=== PATIENT | male | born 1950 | race Two or more races ===

== ENCOUNTER 2018-10-12 09:08 | Day surgery (SDC) | payer MEDICARE, OTHER ==
[2018-10-12] MEDS ORDERED: IV LACTATED RINGERS SOLUTION 1,000 ML BAG IV ONE (09:09)
[2018-10-12] MEDS ORDERED: GLYCOPYRROLATE 0.2 MG/ML VIAL MC ONE (09:09)
[2018-10-12] MEDS ORDERED: NEOSTIGMINE METHYLSULFATE 10 MG/10 ML VIAL IV ONE (09:09)
[2018-10-12] MEDS ORDERED: EPHEDRINE SULFATE 50 MG/ML AMPUL MC ONE (09:09)
[2018-10-12] MEDS ORDERED: PROPOFOL 200 MG/20 ML BOTTLE IV ONE (09:09)
[2018-10-12] MEDS ORDERED: ONDANSETRON 4 MG/2 ML VIAL IV ONE (09:09)
[2018-10-12] MEDS ORDERED: CEFAZOLIN 50 ML IV ONE (09:26)
[2018-10-12] MEDS ORDERED: IV LACTATED RINGERS SOLUTION 1,000 ML IV PRN (10:30)
[2018-10-12] MEDS ORDERED: MIDAZOLAM HCL 2 MG/2 ML VIAL ONE (11:09)
[2018-10-12] MEDS ORDERED: FENTANYL CITRATE 250 MCG/5 ML AMPUL ONE (11:10)
[2018-10-12] MEDS ORDERED: METOCLOPRAMIDE HCL 10 MG/2 ML VIAL ONE (11:11)
[2018-10-12] MEDS ORDERED: ROCURONIUM BROMIDE 50 MG/5 ML VIAL ONE (11:12)
[2018-10-12] MEDS ORDERED: SEVOFLURANE 250 ML BOTTLE ONE (11:18)
[2018-10-12] MEDS ORDERED: BACITRACIN ZINC OINT 15 GM TUBE ONE (11:19)
[2018-10-12] MEDS ORDERED: LIDOCAINE 1%-EPI 1:100,000 20 ML VIAL ONE (12:16)
[2018-10-12] MEDS ORDERED: BUPIVACAINE PF 0.5% 30 ML VIAL ONE (12:16)
[2018-10-12] MEDS ORDERED: ACETAMINOPHEN 325 MG TABLET ONE (13:25)
[2018-10-12] MEDS ORDERED: GABAPENTIN 300 MG CAPSULE PO ONE (14:00)
[2018-10-12] MEDS ORDERED: ACETAMINOPHEN 325 MG TABLET PO ONE (14:00)
[2018-10-12] MEDS ORDERED: IBUPROFEN 800 MG TABLET PO ONE (14:00)
== END 2018-10-12 14:43 | disposition home or self-care (01) ==
LOC: DS 09:08
PROVIDERS: ATTEND Surgery
DX: K42.0 Umbilical hernia with obstruction, without gangrene (principal); F15.90 Other stimulant use, unspecified, uncomplicated; I10 Essential (primary) hypertension; E78.5 Hyperlipidemia, unspecified; I25.10 Atherosclerotic heart disease of native coronary artery without angina pectoris; E66.9 Obesity, unspecified; Z87.891 Personal history of nicotine dependence; Z72.89 Other problems related to lifestyle; Z87.442 Personal history of urinary calculi; Z98.890 Other specified postprocedural states; Z79.899 Other long term (current) drug therapy
CPT/HCPCS: 49587; 71045; 82962; J0690; J2250; J2405; J2710; J2765; J3010; J3490 ×5; J7120 ×2; A4649; A4663

== ENCOUNTER 2019-01-23 08:03 | Day surgery (SDC) | payer MEDICARE, OTHER ==
[2019-01-23] MEDS ORDERED: IRR STERIL WATER FOR IRR 1000 ML BOTTLE IR ONE (08:04)
[2019-01-23] MEDS ORDERED: IV NORMAL SALINE 1000 ML BAG IV ONE (08:04)
[2019-01-23] MEDS ORDERED: LIDOCAINE HCL 2% 20 ML VIAL MC ONE (08:04)
[2019-01-23] MEDS ORDERED: PROPOFOL 200 MG/20 ML BOTTLE IV ONE (08:04)
[2019-01-23 08:43] LABS: *BILIRUBIN,URIN NEGATIVE (NEGATIVE); *BLOOD, URINE NEGATIVE (NEGATIVE); *CLARITY,URINE CLEAR (CLEAR); *COLOR,URINE YELLOW (YELLOW); *KETONES,URINE NEGATIVE (NEGATIVE); *UROBILINOGEN,URINE 0.2 E.U./dl (NORMAL); LEUKOCYTE ESTERASE ,URINE NEGATIVE (NEGATIVE); NITRITE, URINE NEGATIVE (NEGATIVE); UGLUCOSE NEGATIVE (NEGATIVE)
[2019-01-23 08:44] LABS: BASOPHILS # (AUTO) 0.1 K/uL (0.0-8.0); BASOPHILS % (AUTO) 1.1 % (0.0-2.0); EOSINOPHILS # (AUTO) 0.1 K/uL (0.0-0.7); EOSINOPHILS % (AUTO) 1.7 % (0.0-7.0); HEMATOCRIT 40.5 % (36.7-47.1); HEMOGLOBIN 13.6 g/dL (12.5-16.3); LYMPHOCYTES # (AUTO) 2.7 K/uL (20.0-40.0); LYMPHOCYTES % (AUTO) 33.9 % (20.5-51.5); MEAN CORPUSCULAR HEMOGLOBIN 30.7 uug (23.8-33.4); MEAN CORPUSCULAR HGB CONC 34 g/dL (32.5-36.3); MEAN CORPUSCULAR VOLUME 91.6 fL (73.0-96.2); MONOCYTES # (AUTO) 0.6 K/uL (2.0-10.0); MONOCYTES % (AUTO) 7.8 % (0.0-11.0); NEUTROPHILS # (AUTO) 4.4 K/uL (1.8-8.9); NEUTROPHILS % (AUTO) 55.5 % (38.5-71.5); PLATELET COUNT (AUTO) 243 K/uL (152-348); RED BLOOD CELL COUNT(AUTO) 4.43 MIL/uL (4.06-5.63)
[2019-01-23 08:45] LABS: CREATININE 1.1 mg/dL (0.6-1.3); POTASSIUM 4.2 mmol/L (3.5-5.1)
[2019-01-23 08:50] LABS: BACTERIA,URINE NONE SEEN /HPF (NONE SEEN); SQUAMOUS EPITHELIAL CELL,UR FEW /HPF (NONE SEEN); WBC,URINE 0-3 /HPF (0-3)
[2019-01-23 08:51] LABS: BILIRUBIN,TOTAL 0.3 mg/dL (0.2-1.0); TOTAL PROTEIN, SERUM 7.4 g/dL (6.4-8.2); URINE AMORPHOUS PHOSPHATES FEW /HPF
[2019-01-23] MEDS ORDERED: MIDAZOLAM HCL 2 MG/2 ML VIAL ONE (09:25)
[2019-01-23] MEDS ORDERED: FENTANYL CITRATE 100 MCG/2 ML AMPUL ONE (09:25)
== END 2019-01-23 13:07 | disposition home or self-care (01) ==
LOC: DS 08:03
PROVIDERS: ATTEND Surgery
DX: D12.2 Benign neoplasm of ascending colon (principal); D12.3 Benign neoplasm of transverse colon; K57.30 Diverticulosis of large intestine without perforation or abscess without bleeding; K29.50 Unspecified chronic gastritis without bleeding; Z86.010 Personal history of colon polyps; Z80.0 Family history of malignant neoplasm of digestive organs; K29.80 Duodenitis without bleeding; K44.9 Diaphragmatic hernia without obstruction or gangrene; Z87.891 Personal history of nicotine dependence; Z82.49 Family history of ischemic heart disease and other diseases of the circulatory system; I11.9 Hypertensive heart disease without heart failure; E11.9 Type 2 diabetes mellitus without complications; Z79.899 Other long term (current) drug therapy; Z79.84 Long term (current) use of oral hypoglycemic drugs; Z79.4 Long term (current) use of insulin; I25.10 Atherosclerotic heart disease of native coronary artery without angina pectoris; I21.3 ST elevation (STEMI) myocardial infarction of unspecified site
CPT/HCPCS: 36415; 43239; 45380; 80053; 81001; 82962; 85025; 85730; 88305; 88312; 88342; J2250; J3010; J3490; A4217; A4663; J7030

== ENCOUNTER 2020-09-05 06:53 | Outpatient (CLI) | payer MEDICARE, OTHER | END 2020-09-05 23:59 | disposition home or self-care (01) | LOC: LAB 06:53 | PROVIDERS: ATTEND Surgery | DX: Z01.812 Encounter for preprocedural laboratory examination (principal); Z20.828 Contact with and (suspected) exposure to other viral communicable diseases ==

== ENCOUNTER 2020-10-21 07:19 | Outpatient (CLI) | payer MEDICARE, OTHER | END 2020-10-21 23:59 | disposition home or self-care (01) | LOC: LAB 07:19 | PROVIDERS: ATTEND Surgery | DX: Z01.812 Encounter for preprocedural laboratory examination (principal); Z20.828 Contact with and (suspected) exposure to other viral communicable diseases; K62.5 Hemorrhage of anus and rectum; K30 Functional dyspepsia ==

== ENCOUNTER 2020-10-23 07:58 | Day surgery (SDC) | payer MEDICARE, OTHER ==
[~2020-10-23 07:58] MED LIST: CEFAZOLIN 2 G in IV DEXTROSE 5% 100 ML IV ONE
[2020-10-23] MEDS ORDERED: GLYCOPYRROLATE 0.2 MG/ML VIAL IJ ONE (07:59)
[2020-10-23] MEDS ORDERED: PHENYLEPHRINE 10 MG/1 ML VIAL IV ONE (07:59)
[2020-10-23] MEDS ORDERED: METOCLOPRAMIDE HCL 10 MG/2 ML VIAL IV ONE (07:59)
[2020-10-23] MEDS ORDERED: SEVOFLURANE 250 ML BOTTLE IH ONE (07:59)
[2020-10-23] MEDS ORDERED: IV NORMAL SALINE 1000 ML BAG IV ONE (07:59)
[2020-10-23] MEDS ORDERED: EPHEDRINE SULFATE 50 MG/ML AMPUL IM ONE (07:59)
[2020-10-23] MEDS ORDERED: NEOSTIGMINE METHYLSULFATE 10 MG/10 ML VIAL IM ONE (07:59)
[2020-10-23] MEDS ORDERED: ONDANSETRON 4 MG/2 ML VIAL IV ONE (07:59)
[2020-10-23] MEDS ORDERED: LIDOCAINE-MPF 2% 5 ML VIAL IJ ONE (07:59)
[2020-10-23 09:00] LABS: BASOPHILS # (AUTO) 0.1 K/uL (0.0-8.0); BASOPHILS % (AUTO) 1.2 % (0.0-2.0); EOSINOPHILS # (AUTO) 0.2 K/uL (0.0-0.7); EOSINOPHILS % (AUTO) 2.5 % (0.0-7.0); HEMATOCRIT 43.9 % (36.7-47.1); HEMOGLOBIN 14.9 g/dL (12.5-16.3); LYMPHOCYTES # (AUTO) 2.2 K/uL (20.0-40.0); LYMPHOCYTES % (AUTO) 35.9 % (20.5-51.5); MEAN CORPUSCULAR HEMOGLOBIN 31.4 uug (23.8-33.4); MEAN CORPUSCULAR HGB CONC 34 g/dL (32.5-36.3); MEAN CORPUSCULAR VOLUME 92.4 fL (73.0-96.2); MONOCYTES # (AUTO) 0.5 K/uL (2.0-10.0); MONOCYTES % (AUTO) 7.8 % (0.0-11.0); NEUTROPHILS # (AUTO) 3.2 K/uL (1.8-8.9); NEUTROPHILS % (AUTO) 52.6 % (38.5-71.5); PLATELET COUNT (AUTO) 164 K/uL (152-348); RED BLOOD CELL COUNT(AUTO) 4.75 MIL/uL (4.06-5.63)
[2020-10-23 09:01] LABS: *BILIRUBIN,URIN NEGATIVE (NEGATIVE); *CLARITY,URINE CLOUDY (CLEAR); *COLOR,URINE LIGHT YELLOW (YELLOW); *KETONES,URINE NEGATIVE (NEGATIVE); *UROBILINOGEN,URINE 0.2 E.U./dl (NORMAL); LEUKOCYTE ESTERASE ,URINE NEGATIVE (NEGATIVE); NITRITE, URINE NEGATIVE (NEGATIVE); PH,URINE 8.5 (5.0-8.0); UGLUCOSE NEGATIVE (NEGATIVE)
[2020-10-23 09:06] LABS: *BLOOD, URINE TRACE (NEGATIVE)
[2020-10-23] MEDS ORDERED: FENTANYL CITRATE 250 MCG/5 ML AMPUL ONE (09:13)
[2020-10-23 09:15] LABS: BILIRUBIN,TOTAL 0.3 mg/dL (0.2-1.0); CREATININE 0.9 mg/dL (0.6-1.3); POTASSIUM 4.1 mmol/L (3.5-5.1); TOTAL PROTEIN, SERUM 6.9 g/dL (6.4-8.2)
[2020-10-23] MEDS ORDERED: ROCURONIUM BROMIDE 50 MG/5 ML VIAL ONE (09:22)
[2020-10-23] MEDS ORDERED: BACITRACIN ZINC OINT 15 GM TUBE ONE (09:28)
[2020-10-23] MEDS ORDERED: LIDOCAINE 1%-EPI 1:100,000 20 ML VIAL ONE (09:28)
[2020-10-23] MEDS ORDERED: BUPIVACAINE PF 0.5% 30 ML VIAL ONE (09:29)
[2020-10-23] MEDS ORDERED: ACETAMINOPHEN 650 MG/20.3 ML LIQUID UDC PO ONE (13:00)
[2020-10-23] MEDS ORDERED: ACETAMINOPHEN 325 MG TABLET PO ONE (13:00)
[2020-10-23] MEDS ORDERED: GABAPENTIN 300 MG CAPSULE PO ONE (13:00)
[2020-10-23] MEDS ORDERED: IBUPROFEN 800 MG TABLET PO ONE (13:00)
[2020-10-23] MEDS ORDERED: ACETAMINOPHEN 325 MG TABLET ONE (13:29)
[2020-10-25 13:49] LABS: BACTERIA,URINE FEW /HPF (NONE SEEN); RBC,URINE 0-3 /HPF (0-3); SQUAMOUS EPITHELIAL CELL,UR FEW /HPF (NONE SEEN); WBC,URINE 0-3 /HPF (0-3)
[2020-10-25 13:50] LABS: URINE AMORPHOUS URATE MANY /HPF
== END 2020-10-23 14:00 | disposition home or self-care (01) ==
LOC: DS 07:58
PROVIDERS: ATTEND Surgery
DX: K62.5 Hemorrhage of anus and rectum (principal); R10.13 Epigastric pain; K64.4 Residual hemorrhoidal skin tags; K27.9 Peptic ulcer, site unspecified, unspecified as acute or chronic, without hemorrhage or perforation; K21.00 Gastro-esophageal reflux disease with esophagitis, without bleeding; K44.9 Diaphragmatic hernia without obstruction or gangrene; K29.50 Unspecified chronic gastritis without bleeding; K31.89 Other diseases of stomach and duodenum; K63.89 Other specified diseases of intestine; D12.5 Benign neoplasm of sigmoid colon; K57.30 Diverticulosis of large intestine without perforation or abscess without bleeding; K60.2 Anal fissure, unspecified; I25.10 Atherosclerotic heart disease of native coronary artery without angina pectoris; I10 Essential (primary) hypertension; E11.9 Type 2 diabetes mellitus without complications; F32.9 Major depressive disorder, single episode, unspecified; Z86.010 Personal history of colon polyps; Z79.899 Other long term (current) drug therapy; Z98.890 Other specified postprocedural states
CPT/HCPCS: 36415; 43239; 45380; 80053; 81001; 82962; 85025; 85730; 88305; 88313; 88342; 93005; J0690; J2370; J2405; J2765; J3010; J3490 ×6; J7060; A4217; A4649; A4663; J7030